=== PATIENT | male | born 1985 | race African-American/Black ===

== ENCOUNTER 2020-05-06 11:01 | Emergency (ER) | payer OTHER ==
[~2020-05-06] VITALS: Ht 188 cm; Wt 102.0 kg
[2020-05-06] MEDS ORDERED: MAGNESIUM/ALUMINUM HYDROXIDE/SIMETHICONE 30ML UDC PO STA (11:42)
[2020-05-06] MEDS ORDERED: LORAZEPAM 2MG/ML CPJ IV PRN (11:45)
[2020-05-06] MEDS ORDERED: DIAZEPAM 5 MG TABLET PO ONE (11:45)
[2020-05-06 12:00] VITALS: BP 149/80
[2020-05-06 12:41] LABS: CHLORIDE 105 mEq/L (98-107); HEMATOCRIT. 41.8 % (42.0-52.0); HEMOGLOBIN. 14.2 g/dL (14.0-18.0); MEAN CORPUSCULAR HEMOGLOBIN 32.3 pg (28.0-32.0); MEAN CORPUSCULAR VOLUME 95.4 fL (80.0-94.0); MEAN PLATELET VOLUME 9.3 fl (7.4-10.4); PLATELET 333 x1000/uL (130-400); RED BLOOD CELL COUNT 4.38 mill/uL (4.7-6.1); RED CELL DISTRIBUTION WIDTH 14.5 % (11.6-14.6)
[2020-05-06 12:47] LABS: ETHANOL BLOOD < 10 mg/dL
[2020-05-06 13:37] LABS: PLATELET ESTIMATE NORMAL
[2020-05-06 15:15] LABS: PROTHROMBIN TIME 10.3 sec (9.6-11.0)
== END 2020-05-06 13:55 | disposition left against medical advice (07) ==
LOC: ER 11:11
DX: G40.909 Epilepsy, unspecified, not intractable, without status epilepticus (principal); I49.9 Cardiac arrhythmia, unspecified
CPT/HCPCS: 36415; 80053; 80320; 82962; 83690; 85025; 85610; 93005; 96374; 99284; J2060; G0480